=== PATIENT | female | born 1965 | race Caucasian/White ===

== ENCOUNTER → 2016-08-07 | Outpatient (CLI) | payer BC ==
[2016-07-20 08:11] VITALS: BP 146/94
[2016-08-07 12:15] LABS: BASOPHILS # (AUTO) 0.1 X10^3/uL (0.0-0.1); BASOPHILS % (AUTO) 1.2 % (0.2-1.0); BILIRUBIN,URINE NEGATIVE (NEGATIVE); BLOOD/HEMOGLOBIN,URINE NEGATIVE (NEGATIVE); EOSINOPHILS # (AUTO) 0.6 x10^3/uL (0.0-0.2); EOSINOPHILS % (AUTO) 7.7 % (0.9-2.9); GLUCOSE, URINE NEGATIVE (NEGATIVE); HEMATOCRIT 42.9 % (36.0-47.0); HEMOGLOBIN 14.6 g/dL (12.0-16.0); KETONES,URINE NEGATIVE (NEGATIVE); LEUKOCYTE ESTERASE ,URINE NEGATIVE (NEGATIVE); LYMPHOCYTES # (AUTO) 1.9 X10^3/uL (1.3-2.9); LYMPHOCYTES % (AUTO) 26.7 % (21.0-51.0); MEAN CORPUSCULAR HEMOGLOBIN 30.6 pg (27.0-34.0); MEAN CORPUSCULAR HGB CONC 33.9 g/dL (33.0-35.0); MEAN CORPUSCULAR VOLUME 90.1 fL (80.0-100.0); MEAN PLATELET VOLUME 8.5 fL (7.4-11.0); MONOCYTES # (AUTO) 0.3 x10^3/uL (0.3-0.8); MONOCYTES % (AUTO) 4.8 % (0.0-13.0); NEUTROPHILS # (AUTO) 4.3 x10^3/uL (2.2-4.8); NEUTROPHILS % (AUTO) 59.6 % (42.0-75.0); NITRITES,URINE NEGATIVE (NEGATIVE); PLATELET COUNT 291 X10^3/uL (150.0-450.0); PROTEIN,URINE NEGATIVE (NEGATIVE); RED BLOOD COUNT 4.76 X10^6/uL (3.5-5.4); RED CELL DISTRIBUTION WIDTH 14.2 % (11.6-16.5); UROBILINOGEN,URINE NORMAL (NORMAL); WHITE BLOOD COUNT 7.2 X10^3/uL (3.6-10.0)
[2016-08-07 12:26] LABS: ALANINE AMINOTRANSFERASE 26 Units/L (12-78); ALBUMIN 3.7 g/dL (3.4-5.0); ALKALINE PHOSPHATASE 145 Units/L (46-116); ASPARTATE AMINO TRANSFERASE 20 Units/L (15-37); BLOOD UREA NITROGEN 7 mg/dL (7-18); CALCIUM 9.1 mg/dL (8.5-10.1); CARBON DIOXIDE 23.2 mmol/L (21-32); CHLORIDE 108 mmol/L (98-107); GLUCOSE 85 mg/dL (65-99); SODIUM 142 mmol/L (136-145); T4 (THYROXINE) 11.4 ug/dL (4.7-13.3); TOTAL PROTEIN 7.1 g/dL (6.4-8.2); TSH (3RD GENERATION) 1.641 uIU/mL (0.358-3.74); eGFR BLACK RACES > 60 (>60); eGFR NON BLACK RACES > 60 (>60)
[2016-08-07 12:33] LABS: APPEARANCE,URINE CLEAR (CLEAR); COLOR,URINE YELLOW (YELLOW); RBC,URINE 0 /HPF (NEGATIVE)
[2016-08-07 12:34] LABS: AMORPHOUS SEDIMENT,UR 1+ /HPF (NEGATIVE); BACTERIA,URINE TRACE /HPF (NEGATIVE); SQUAMOUS EPITHELIAL CELL,UR MODERATE /HPF (NEGATIVE)
[2016-08-07 12:46] LABS: RHEUMATOID FACTOR NEGATIVE (NEGATIVE)
[2016-08-12 06:17] LABS: ANTI-NUCLEAR ANTIBODY TEST None Detected (None Detected)
[2016-08-12 06:20] LABS: COMPLEMENT TOTAL(CH50) 177 CAE Units (60-144)
[2016-08-13 07:08] LABS: T3 REVERSE 13.2 ng/dL (9.0-27.0)
== END ==
LOC: LAB 08:53
PROVIDERS: ATTEND Allergy & Immunology
DX: Z79.899 Other long term (current) drug therapy (principal)
CPT/HCPCS: 36415; 80053; 81001; 82103; 82784; 83088; 83516; 83520; 84260; 84436; 84443; 84482; 85025; 86021; 86160; 86162; 86235; 86308; 86316; 86317; 86376; 86430; 86682; 86793; 86800

== ENCOUNTER → 2016-08-09 | Outpatient (CLI) | payer BC ==
[2016-07-20 08:11] VITALS: BP 146/94
[2016-08-13 07:32] LABS: CREATININE UR MG/DAY 1239; CREATININE UR MG/DL 59
[2016-08-13 07:33] LABS: HOURS COLLECTED 24; VOLUME 2100
[2016-08-13 07:36] LABS: TOTAL URINE VOL VMA 2100
== END ==
LOC: LAB 09:28
PROVIDERS: ATTEND Allergy & Immunology
DX: L50.8 Other urticaria (principal); L29.8 Other pruritus; Z79.899 Other long term (current) drug therapy; G96.0 Cerebrospinal fluid leak
CPT/HCPCS: 81050; 83497; 83835; 84585

== ENCOUNTER 2016-08-28 00:43 | Observation (INO) | payer BC ==
[2016-08-28] MEDS ORDERED: NITROSTAT SL PRN ×2 (00:59→02:08)
[2016-08-28] MEDS ORDERED: ASPIRIN 81 MG CHEWTAB PO SCH (01:00)
--- NOTE | 2016-08-28 01:05 | DR.CP ---
HPI - Time Seen Time seen: 00:55 - PCP Primary Care Physician: Luna NOVAK - HPI Comment HPI Comment: PATIENT WOKE UP WITH SUBSTERNAL CHEST TIGHTNESS, 02/16 RADIATING TO LUE. STARTED LESS THAN ONE HOUR AGO. PATIENT DID NOT TAKE ANY MEDICATION FOR PAIN. CURRENTLY PAIN 5/10. PATIENT HAVE HISTORY OF CAD WITH PREVIOUS DC. SHE HAD NORMAL CARDIAC CATH FEBRUARY LAST YEAR. PATIENT SMOKE 1 PK/DAY, AND HAVE FAMILY HISTORY OF CAD. - Complaint Chief Complaint Doctor Comments: CHEST PAIN Chief Complaint:: WOKE UP WITH LEFT ARM HURTING AND A BURNING PAIN ALONG WITH TIGHTNESS IN CHEST. NAUSEA AND SIARRHEA - Reviewed Nurses Notes Review: Yes - Source History Provided: Patient - Mode of Arrival Mode of Arrival: Ambulatory - Timing Onset of Chief Complaint: 08/28/16 Came on: Suddenly Pain: Present Now - Duration Duration: Constant Duration: Minutes - Location Location of Chest Pain: Left, Chest Chest Pain Radiation Location: Left Arm, Left Shoulder, Left Hand - Context Onset: While Asleep Cardiac Risk Factors: Smoker, Family History, HTN PE Risk Factors: None History of: Similar pain in the past, DC Prehospital Care: None - Quality Quality: Other (TIGHTNESS) - Severity Severity: Moderate - Modifying Factors Worsens: Nothing Impoves: Nothing - Associated Signs and Symptoms Associated Signs and Symptoms: Shortness of Breath PMH - PMH Past Medical History: Yes Past Medical History: Asthma, GERD, Hypertension, [place] Past Surgical History: Yes Surgical History: Appendectomy Past Surgical History Comment: SINUS SURGERY, 3 HEART CATHS, TUBELIGATION - Family History History of Family Medical Conditions: Yes Family Medical History: Diabetes Mellitus, Cancer, [place], Heart Failure, Hypertension Family Medical History Comment: CVA, DEMENTIA - Social History Does patient currently use any type of tobacco product: Yes Have you used tobacco products in the last 12 months: Yes Type of Tobacco Use: Cigarettes How many years tobacco product used: 40 Does any household member use tobacco: Yes Alcohol Use: None Do you use any recreational Drugs:: No Lives With: Significant Other Lives Where: Home - infectious screening In the last 2 months have you had wt loss of >10#?: NO Have you had fever, night sweats or hemotysis?: No Have you traveled outside the country in the last 6 months?: No Isolation: Standard ROS - Review of Systems Constitutional: Weakness, Fatigue. negative: Chills, Fever Eyes: No Symptoms Reported. negative: Eye Pain, Discharge ENTM: No Symptoms Reported. negative: Ear Pain, Nose Discharge, Nose Congestion , Throat Pain Respiratoy: Short of Breath. negative: Productive Cough, Wheezing, Hemoptysis Cardiovascular: Chest Pain. negative: Edema, Palpitations Gastrointestinal/Abdominal: Nausea. negative: Abdominal Pain, Constipation, Vomiting Genitourinary: No Symptoms Reported. negative: Dysuria, Frequency, Hematuria Neurological: Weakness. negative: Headache, Dizziness Musculoskeletal: No Symptoms Reported Integumentary: No Symptoms Reported Hematologic/Lymphatic: Easy Bruising Endocrine: No Symptoms Reported All Other Systems: Reviewed and Negative PE - Vitals Vitals: Temperature 98.4 F Pulse Rate 79 Respiratory Rate 120 Blood Pressure 130/79 O2 Sat by Pulse Oximetry 96 - General Limitations: No Limitations General Appearance: Alert, Anxious. negative: In Distress - Head Head Exam: Normal Inspection - Eyes Eye exam: Normal Appearance, PERRL, EOMI. negative: Scleral Icterus, Conjunctival Injection, Nystagmus - ENT ENT Exam: Normal External Ear Exam - Chest Chest Inspection: Symmetric Chest Wall Rise - Respiratory Respiratory Exam: Normal Lung Sounds Bilat Respiratory Exam: Bilateral Rhonchi, Lower Rhonchi - Cardiovascular Cardiovascular Exam: Regular Rate, Normal Rhythm, Normal Heart Sounds Pulse: Normal Edema: Normal - Abdominal Exam Abdominal Exam: Normal Bowel Sounds, Soft. negative: Tenderness - Extremities Extremities Exam: Normal Inspection - Back Back Exam: Normal Inspection - Neurologic Neurological Exam: Alert, Oriented X3, CN II-XII Intact, Normal Gait, Reflexes Normal. negative: Motor Sensory Deficit - Psychiatric Psychiatric Exam: Anxious - Skin Skin Exam: Normal Color [facility] - Additional Information Additional Information Obtained From: Family - Differential Diagnosis Differential Diagnosis: Angina, Chest Wall Pain, Cholelithasis, CHF, Costochondritis, Esophageal Reflux/Spasm, Gastritis, Myocardial Infarction, Pericarditis, Pleuritis, Pancreatitis, Pneumonia, Pneumothorax, Pulmonary Embolus Course - Treatment Treatment: SEE ORDERS. - Education/Counseling Education/Counseling: Patient, Family, Education Educated On: Treatment, Diagnosis ROR - Labs Reviewed Laboratory Results Reviewed?: Yes Result Diagrams: 08/28/16 01:15 08/28/16 01:15 Laboratory: WBC 7.7 X10^3/uL (3.6-10.0) 08/28/16 01:15 RBC 4.46 X10^6/uL (3.5-5.4) 08/28/16 01:15 Hgb 13.4 g/dL (12.0-16.0) 08/28/16 01:15 Hct 39.9 % (36.0-47.0) 08/28/16 01:15 MCV 89.3 fL (80.0-100.0) 08/28/16 01:15 MCH 30.1 pg (27.0-34.0) 08/28/16 01:15 MCHC 33.7 g/dL (33.0-35.0) 08/28/16 01:15 RDW 13.7 % (11.6-16.5) 08/28/16 01:15 Plt Count 315 X10^3/uL (150.0-450.0) 08/28/16 01:15 MPV 7.3 fL (7.4-11.0) L 08/28/16 01:15 Neut % 44.3 % (42.0-75.0) 08/28/16 01:15 Lymph % 36.6 % (21.0-51.0) 08/28/16 01:15 [place] % 5.6 % (0.0-13.0) 08/28/16 01:15 Eos % 11.7 % (0.9-2.9) H 08/28/16 01:15 Baso % 1.8 % (0.2-1.0) H 08/28/16 01:15 Neut # 3.4 x10^3/uL (2.2-4.8) 08/28/16 01:15 Lymph # 2.8 X10^3/uL (1.3-2.9) 08/28/16 01:15 [place] # 0.4 x10^3/uL (0.3-0.8) 08/28/16 01:15 Eos # 0.9 x10^3/uL (0.0-0.2) H 08/28/16 01:15 Baso # 0.1 X10^3/uL (0.0-0.1) 08/28/16 01:15 Absolute Nucleated RBC 0.0 /100WBC 08/28/16 01:15 Corrected Sodium TNP 08/28/16 01:15 - XRAY XRAY Interpreted by: Radiologist XRAY Findings: REPORT DISCUSS WITH PAITIENT AND FAMILY - EKG Rhythm: NSR (EKG NOTED) - Diagnosis Discharge Problem: Chest pain - Discharge Plan Disposition: ADMITTED INPATIENT Condition: Stable - Follow ups/Referrals - Instructions
[2016-08-28] MEDS ORDERED: PEPCID 20 MG IV PREMIX* 20 MG/50 ML BAG IV ONE ×2 (01:09→01:46)
[2016-08-28 01:20] LABS: BASOPHILS # (AUTO) 0.1 X10^3/uL (0.0-0.1); BASOPHILS % (AUTO) 1.8 % (0.2-1.0); EOSINOPHILS # (AUTO) 0.9 x10^3/uL (0.0-0.2); EOSINOPHILS % (AUTO) 11.7 % (0.9-2.9); HEMATOCRIT 39.9 % (36.0-47.0); HEMOGLOBIN 13.4 g/dL (12.0-16.0); LYMPHOCYTES # (AUTO) 2.8 X10^3/uL (1.3-2.9); LYMPHOCYTES % (AUTO) 36.6 % (21.0-51.0); MEAN CORPUSCULAR HEMOGLOBIN 30.1 pg (27.0-34.0); MEAN CORPUSCULAR HGB CONC 33.7 g/dL (33.0-35.0); MEAN CORPUSCULAR VOLUME 89.3 fL (80.0-100.0); MEAN PLATELET VOLUME 7.3 fL (7.4-11.0); MONOCYTES # (AUTO) 0.4 x10^3/uL (0.3-0.8); MONOCYTES % (AUTO) 5.6 % (0.0-13.0); NEUTROPHILS # (AUTO) 3.4 x10^3/uL (2.2-4.8); NEUTROPHILS % (AUTO) 44.3 % (42.0-75.0); PLATELET COUNT 315 X10^3/uL (150.0-450.0); RED BLOOD COUNT 4.46 X10^6/uL (3.5-5.4); RED CELL DISTRIBUTION WIDTH 13.7 % (11.6-16.5); WHITE BLOOD COUNT 7.7 X10^3/uL (3.6-10.0)
[2016-08-28 01:38] LABS: BLOOD UREA NITROGEN 8 mg/dL (7-18); CALCIUM 8.9 mg/dL (8.5-10.1); CARBON DIOXIDE 24.2 mmol/L (21-32); CHLORIDE 104 mmol/L (98-107); CREATININE 0.84 mg/dL (0.55-1.02); GLUCOSE 107 mg/dL (65-99); SODIUM 140 mmol/L (136-145); TROPONIN I < 0.02 ng/mL (0-1.5); eGFR BLACK RACES > 60 (>60); eGFR NON BLACK RACES > 60 (>60)
[2016-08-28 01:53] LABS: ALANINE AMINOTRANSFERASE 16 Units/L (12-78); ALBUMIN 3.2 g/dL (3.4-5.0); ALKALINE PHOSPHATASE 141 Units/L (46-116); ASPARTATE AMINO TRANSFERASE 12 Units/L (15-37); CKMB % 2.6 % (<4); COR CA(FOR HYPOALB) 9.5 mg/dL (8.5-10.1); CREATINE KINASE 39 Units/L (26-192); CREATINE KINASE MB < 1.0 ng/mL (0-4.0); TOTAL PROTEIN 7.1 g/dL (6.4-8.2)
[2016-08-28 03:21] VITALS: BMI 28.2
[2016-08-28] MEDS ORDERED: ASPIRIN 81 MG CHEWTAB ONE (03:34)
--- NOTE | 2016-08-28 04:00 | RAD ---
AP Chest Indication: Chest pain Comparison: 07/20/2016 Findings: The trachea is midline. The cardiac silhouette is unremarkable. Subsegmental atelectasis noted wit hin the lung bases, unchanged. No new airspace opacity, pleural effusion or pneumothorax.. The bony thorax is unremarkable. IMPRESSION: 1. No acute cardiopulmonary abnormality or change from prior examination.. Reported By:
[2016-08-28] MEDS ORDERED: ZOFRAN INJ 4 MG VIAL IVP PRN (04:36)
[2016-08-28] MEDS ORDERED: PHENERGAN INJ 25 MG IV PRN (05:40)
[2016-08-28 07:40] LABS: CKMB % 1.8 % (<4); CREATINE KINASE 57 Units/L (26-192); CREATINE KINASE MB < 1.0 ng/mL (0-4.0); TROPONIN I < 0.02 ng/mL (0-1.5)
[2016-08-28 07:42] LABS: CHOL/HDL RATIO 4.1 (0.0-5.0)
[2016-08-28] MEDS ORDERED: MORPHINE SULFATE INJ 2 MG IVP PRN ×2 (08:28→18:03)
[2016-08-28] MEDS: PEPCID 20 MG IV PREMIX* 20 MG/50 ML BAG IV SCH ×2 (08:58→20:31)
[2016-08-28] MEDS: NS 500 ML IV 500 ML IV PRN (08:59)
[2016-08-28] MEDS ORDERED: CHLORASEPTIC SPRAY MT PRN (10:55)
[2016-08-28] MEDS: ASPIRIN 81 MG CHEWTAB PO SCH (10:57)
[2016-08-28] MEDS: PLAVIX PO SCH (10:57)
[2016-08-28 14:31] LABS: CKMB % 1.6 % (<4); CREATINE KINASE 62 Units/L (26-192); CREATINE KINASE MB < 1.0 ng/mL (0-4.0)
[2016-08-28 14:57] LABS: TROPONIN I < 0.02 ng/mL (0-1.5)
--- NOTE | 2016-08-28 15:46 | US ---
HISTORY: Abdominal pain, nausea, vomiting Study: Right upper quadrant abdominal ultrasound Comparison: None Technique: Multiple kern scale and color flow Doppler images of the right upper quadrant were obtain ed. Findings: The liver is normal in echotexture and size. No focal intraparenchymal mass or intrahepatic biliary ductal dilatation is observed. No evidence of gallstones. The common bile duct measures size. Th ere is borderline gallbladder wall thickening up to 4 mm that may be in part be due to underdistenti on. No pericholecystic fluid identified. No sonographic Basurto's sign reported. The right kidney appears normal in size without focal parenchymal mass or nephrolithiasis. The righ t kidney measurers 10 x 6.6 x 4.8 cm. No evidence of hydronephrosis. The visualized portions of th e pancreas are unremarkable. IMPRESSION: 1. Borderline gallbladder wall thickening up to 4 mm that may in part be due to underdistention. No evidence of gallstones or other sonographic evidence of cholecystitis. 2. Normal appearance of the liver, right kidney and pancreas. Reported By:
[2016-08-28] MEDS ORDERED: NORCO 7.5/325 MG TAB PO PRN (18:02)
[2016-08-28] MEDS ORDERED: COMBIVENT RESPIMAT IN PRN ×2 (18:02→18:10)
[2016-08-28] MEDS ORDERED: DEMEROL INJ IVP PRN (18:04)
--- NOTE | 2016-08-28 18:11 | DR.H&P ---
H&P - History & Physical for Day of: H&P Date: 08/28/16 - Chief Complaint Chief Complaint: cp - Allergies Allergies/Adverse Reactions: Allergies Allergy/AdvReac Type Severity Reaction Status Date / Time Hydromorphone [From Dilaudid] Allergy Verified 08/06/15 18:50 Ketorolac Tromethamine Allergy Verified 08/06/15 18:50 [From Toradol] Aspirin AdvReac STOMACH Verified 08/28/16 02:47 HURTS - History of Present Illness History of Present Illness: patient is a 50-year-old white female who was admitted from the emergency room after presenting with complaints of chest pain. Patient states chest pain woke her up around midnight accompanied by nausea and shortness of breath. Patient states she's had multiple heart catheters in the past per Dr. Benz in [place]. Patient also has a history of reflux disease with last EGD be in greater than a year ago. Patient admitted for serial cardiac enzymes and EKG to rule out NE. - Past Medical History Past Medical History: Asthma, GERD, Hypertension, [place] - Past Surgical History Surgical History: Appendectomy - Family History Family Medical History: Diabetes Mellitus, Cancer, [place], Heart Failure, Hypertension - Social History Does patient currently use any type of tobacco product: Yes Have you used tobacco products in the last 12 months: Yes Type of Tobacco Use: Cigarettes How many years tobacco product used: 40 Does any household member use tobacco: Yes Alcohol Use: None Drug Use: None - Medications Home Medications: Fluticasone Nasal [place] [FLONASE NASAL SPRAY *] 1 spray ENOSTRIL DAILY 08/28/16 [History Confirmed 08/28/16] Hydroxyzine HCl [Hydroxyzine HCl] 1 tab PO DAILY 08/28/16 [History Confirmed 05/04] Levocetirizine Dihydrochloride [Levocetirizine Dihydrochl] 1 tab PO DAILY [History Confirmed 08/28/16] Omeprazole [Omeprazole] 1 cap PO DAILY 08/28/16 [History Confirmed 08/28/16] - Review of Systems Constitutional: denies: Fever, Chills Eyes: No Symptoms Reported ENT: No Symptoms Reported Respiratory: Shortness of Breath Cardiovascular: Chest Pain Gastrointestinal: Nausea Genitourinary: No Symptoms Reported Musculoskeletal: Back Pain Skin: No Symptoms Reported Neurological: No Symptoms Reported - Physical Exam Vital Signs: Temperature 98.7 F Pulse Rate [Left Brachial] 90 Pulse Rate [Right Brachial] 72 Respiratory Rate 20 Blood Pressure [Left Arm] 119/75 Blood Pressure [Right Arm] 132/90 O2 Sat by Pulse Oximetry 93 Oriented: Normal Eyes: Normal Ear: Normal Nose: Normal Throat: Normal Respiratory: RLL Exp. Wheeze, LLL Exp. Wheeze Cardiovascular: Normal : Normal Auscultation: Bowel Sounds: Normal Palpation: Normal Tenderness: RUQ, Epigastric Skin: Normal Musculoskeletal: Back:Lumbar Psychiatric: Anxiety Speech Pattern: Clear, Appropriate - Assessment/Plan (1) Chest pain Qualifiers: Chest pain type: C Ischemic chest pain type: I Status: Acute Plan: admit for serial CE's, EKG ro acute NE. plan to repeat am labs. continue bp and lipid control. pain and nausea control (2) RUQ pain Status: Acute Plan: gb us, bland diet (3) GERD (gastroesophageal reflux disease) Qualifiers: Esophagitis presence: E Status: Acute
[2016-08-28] MEDS ORDERED: SYMBICORT INH 160/4.5 mcg IN SCH (18:15)
[2016-08-28] MEDS ORDERED: PATIENT'S HOME MEDICATION RESPIRATORY (Levocetirizine Dihydrochloride [Levocetirizine Dihy PO SCH (20:00)
[2016-08-28] MEDS ORDERED: BENADRYL CAP 50 MG PO SCH (20:00)
[2016-08-28] MEDS ORDERED: [UNRECOGNIZED DRUG - OTHER] PO SCH (20:00)
[2016-08-28] MEDS: FLONASE NASAL SPRAY ENOSTRIL SCH (20:30)
[2016-08-28] MEDS ORDERED: SINGULAIR TAB 10 MG PO SCH (21:00)
[2016-08-28] MEDS: SYMBICORT INH 160/4.5 mcg IN SCH (21:29)
[2016-08-28] MEDS ORDERED: BENADRYL CAP 50 MG PO PRN (23:54)
[2016-08-29 05:21] LABS: BASOPHILS % (AUTO) 0.7 % (0.2-1.0); EOSINOPHILS # (AUTO) 0.5 x10^3/uL (0.0-0.2); EOSINOPHILS % (AUTO) 11.3 % (0.9-2.9); HEMATOCRIT 39.6 % (36.0-47.0); HEMOGLOBIN 13.4 g/dL (12.0-16.0); LYMPHOCYTES # (AUTO) 2.1 X10^3/uL (1.3-2.9); LYMPHOCYTES % (AUTO) 42.9 % (21.0-51.0); MEAN CORPUSCULAR HEMOGLOBIN 30.1 pg (27.0-34.0); MEAN CORPUSCULAR HGB CONC 33.7 g/dL (33.0-35.0); MEAN CORPUSCULAR VOLUME 89.4 fL (80.0-100.0); MEAN PLATELET VOLUME 7.6 fL (7.4-11.0); MONOCYTES # (AUTO) 0.2 x10^3/uL (0.3-0.8); MONOCYTES % (AUTO) 4.1 % (0.0-13.0); PLATELET COUNT 303 X10^3/uL (150.0-450.0); RED BLOOD COUNT 4.43 X10^6/uL (3.5-5.4); RED CELL DISTRIBUTION WIDTH 13.3 % (11.6-16.5); WHITE BLOOD COUNT 4.8 X10^3/uL (3.6-10.0)
[2016-08-29 05:54] LABS: ALANINE AMINOTRANSFERASE 13 Units/L (12-78); ALBUMIN 2.9 g/dL (3.4-5.0); ALKALINE PHOSPHATASE 132 Units/L (46-116); AMYLASE 41 Units/L (25-115); ASPARTATE AMINO TRANSFERASE 14 Units/L (15-37); BLOOD UREA NITROGEN 11 mg/dL (7-18); CALCIUM 8.5 mg/dL (8.5-10.1); CARBON DIOXIDE 22.9 mmol/L (21-32); CHLORIDE 107 mmol/L (98-107); COR CA(FOR HYPOALB) 9.4 mg/dL (8.5-10.1); GLUCOSE 99 mg/dL (65-99); LIPASE 78 Units/L (73-393); SODIUM 140 mmol/L (136-145); TOTAL PROTEIN 6.7 g/dL (6.4-8.2); eGFR BLACK RACES > 60 (>60); eGFR NON BLACK RACES > 60 (>60)
[2016-08-29] MEDS: SYMBICORT INH 160/4.5 mcg IN SCH (08:37)
[2016-08-29] MEDS ORDERED: ATARAX TAB 25 MG PO SCH (09:00)
[2016-08-29] MEDS ORDERED: PriLOSEC PO SCH (09:00)
[2016-08-29] MEDS ORDERED: ZyrTEC TAB 10 MG PO SCH (09:00)
[2016-08-29] MEDS: PEPCID 20 MG IV PREMIX* 20 MG/50 ML BAG IV SCH (09:28)
[2016-08-29] MEDS: NS 500 ML IV 500 ML IV PRN (09:28)
[2016-08-29] MEDS ORDERED: NS 1000 ML 1,000 ML ONE (14:27)
[2016-08-29] MEDS ORDERED: DIPRIVAN VIAL 20 ML ONE (15:29)
[2016-08-29] MEDS ORDERED: XYLOCAINE 2 % (PLAIN) ONE (15:30)
[2016-08-29] MEDS: ASPIRIN 81 MG CHEWTAB PO SCH (16:32)
[2016-08-29] MEDS: FLONASE NASAL SPRAY ENOSTRIL SCH (16:32)
[2016-08-29] MEDS: PLAVIX PO SCH (16:33)
[2016-08-29 17:37] VITALS: BP 128/78
== END 2016-08-29 17:35 | disposition home or self-care (01) | DRG 313 ==
LOC: ER 00:43 → OBS 02:06
PROVIDERS: ADMIT Internal Medicine; ATTEND Internal Medicine
PROC: 0DB68ZX Excision of Stomach, Via Natural or Artificial Opening Endoscopic, Diagnostic (ICD-10-PCS; principal; 2016-08-28)
PROC: 0DB98ZX Excision of Duodenum, Via Natural or Artificial Opening Endoscopic, Diagnostic (ICD-10-PCS; 2016-08-28)
DX: R07.89 Other chest pain (principal); R11.2 Nausea with vomiting, unspecified; R19.7 Diarrhea, unspecified; K21.9 Gastro-esophageal reflux disease without esophagitis; I10 Essential (primary) hypertension; R10.11 Right upper quadrant pain
CPT/HCPCS: 36415; 71010; 76705; 80053; 80061; 82150; 82550; 82553; 83690; 84484; 85025; 93005; 93010; 94640; 94760; 96365; 96374; 99284; A4216; A4222; S0028; A4217; G0378; J2001; J2270; J2405; J2550; J3490

== ENCOUNTER → 2016-09-23 | Outpatient (CLI) | payer BC ==
[2016-08-29 17:37] VITALS: BP 128/78
[~2016-09-23] MED LIST: NS 100 ML IV 0 ML IV ONE
--- NOTE | 2016-09-23 10:57 | CT ---
HISTORY: Right lower quadrant pain Study: Abdominal and pelvic CT without contrast Comparison: None Technique: Axial non contrast images with coronal and sagittal reformats. IV contrast could not be a dministered due to the inability to obtain venous access. Dose reduction procedures were used with M A/kv adjusted for body size. Findings: There is partially visualized atelectatic change in the right middle lobe of uncertain etiology. The left lung base is clear. The liver, spleen, adrenal glands, and pancreas are within normal limits t o the limitations of an unenhanced examination. No opaque stones are visible within the gallbladder. The kidneys are unobstructed and without stones. No ureteral calculi are identified. The patient is status post appendectomy by history. No enlarged intraperitoneal or retroperitoneal lymphadenopathy is identified. There are no findings suggestive of diverticulitis or colitis. No definite small bow el abnormality is identified. Examination of the pelvis demonstrated no evidence for pelvic masses, pelvic fluid, or pelvic lymphadenopathy. No bladder abnormality is identified. No significant skelet al abnormality is identified. IMPRESSION: No evidence for obstructing renal or ureteral calculi. No significant abnormality in the abdomen or on unenhanced examination Partially visualize atelectatic change in the right middle lobe. Chest CT may be of further diagnost ic value. Reported By:
== END | disposition home or self-care (01) ==
LOC: RAD 09:14
PROVIDERS: ATTEND Internal Medicine
DX: K58.0 Irritable bowel syndrome with diarrhea (principal); R10.32 Left lower quadrant pain; R11.2 Nausea with vomiting, unspecified; R10.31 Right lower quadrant pain
CPT/HCPCS: 74176; A4222

== ENCOUNTER 2016-10-15 10:55 | Emergency (ER) | payer BC ==
[2016-10-15 11:00] VITALS: BP 155/90; BMI 29.9
[2016-10-15] MEDS ORDERED: XYLOCAINE 1 % (PLAIN) ONE (11:42)
--- NOTE | 2016-10-15 11:51 | DR.GENAD ---
HPI - PCP Primary Care Physician: josé - HPI Comment HPI Comment: NO FEVER. SIZE OF SWELLING HAVE INCREASE AND IS PAINFUL AND RED. NO DRAINAGE. SMALL SWELLING NOTED BEHIND RT EAR FOR ONE YEAR. - Complaint/Symptoms Chief Complaint Doctors Comments: SWELLING AND PAIN BEHIND RIGHT EAR THAT GOT WORSE FEW DAYS AGO. Chief Complaint:: patient has a abcess behind her right ear that has been there for about a year but it has gotton gigger and more painfull. - Nurses notes reviewed Nurses Notes Review: Yes - Source History Provided: Patient - Mode of Arrival Mode of Arrival: Ambulatory - Timing Onset of Chief Complaint: 10/03/15 Came on: Gradually - Duration Duration: Constant Duration: Days - Severity Severity: Moderate PMH - PMH Past Medical History: Yes Past Medical History: Asthma, GERD, Hypertension, [place] Past Surgical History: Yes Surgical History: Appendectomy - Family History History of Family Medical Conditions: Yes Family Medical History: Diabetes Mellitus, Cancer, [place], Heart Failure, Hypertension - Social History Does patient currently use any type of tobacco product: Yes Have you used tobacco products in the last 12 months: Yes Type of Tobacco Use: Cigarettes Does any household member use tobacco: Yes Alcohol Use: None Do you use any recreational Drugs:: No Lives With: Family Lives Where: Home - infectious screening In the last 2 months have you had wt loss of >10#?: NO Have you had fever, night sweats or hemotysis?: No Have you traveled outside the country in the last 6 months?: No Isolation: Standard ROS - Review of Systems Constitutional: No Symptoms Reported Eyes: No Symptoms Reported ENTM: No Symptoms Reported (PAIN AND SWELLING BEHIND RT EAR WITH REDNESS.), Ear Pain. negative: Ear Discharge Respiratoy: No Symptoms Reported Cardiovascular: No Symptoms Reported Gastrointestinal/Abdominal: No Symptoms Reported Genitourinary: No Symptoms Reported Neurological: No Symptoms Reported Musculoskeletal: Muscle Pain Integumentary: Other (ABSCESS BEHIND RT EAR.) Hematologic/Lymphatic: No Symptoms Reported Endocrine: No Symptoms Reported All Other Systems: Reviewed and Negative PE - Vital Signs Vitals: Temperature 98.7 F Pulse Rate 96 Respiratory Rate 18 Blood Pressure [Left Arm] 112/76 Blood Pressure [Right Arm] 128/78 Blood Pressure 155/90 O2 Sat by Pulse Oximetry 100 - General Limitations: No Limitations General Appearance: Alert - Head Head Exam: Normal Inspection - Eyes Eye exam: Normal Appearance - ENT ENT Exam: Other (ABSCESS OR CYST SIZE PRECIADO EGG WHICH IS SLIGHTLY RED AND TENDER.) TM/Canal Exam: Bilateral Normal Nose Exam: Normal Nose Exam Mouth Exam: Normal Inspection Throat Exam: Normal Inspection - Neck Neck Exam: Trachea Midline - Respiratory Respiratory Exam: Normal Lung Sounds Bilat Respiratory Exam: Bilateral Clear to Auscultation - Cardiovascular Cardiovascular Exam: Regular Rate, Normal Rhythm, Normal Heart Sounds - Abdominal Exam Abdominal Exam: Normal Inspection - Extremities Extremities Exam: Normal Inspection - Back Back Exam: Normal Inspection - Neurologic Neurological Exam: Alert, Oriented X3 - Psychiatric Psychiatric Exam: Normal Affect, Normal Mood - Skin Skin Exam: Erythema MDM - Differential Diagnosis Differential Diagnosis: ABSCESS BEHIND RIGHT EAR, CELLULITIS Course - Treatment Treatment: SEE ORDERS. - Education/Counseling Education/Counseling: Patient, Education Educated On: Diagnosis, Needs for Follow Up ROR - Labs Reviewed Laboratory: 10/15/16 12:09 Ear - Right Gram Stain - Final Procedures - Incision and Drainage Blade Size: 11 I & D Procedure: betadine prep, sterile drapes applied Progress: I&D DONE UNDER STERILE CONDITION AFTER NUMBING WITH LIDOCAINE 1%. - Diagnosis Discharge Problem: Abscess - Discharge Plan Disposition: 01 HOME, SELF-CARE Condition: Stable - Follow ups/Referrals Follow ups/Referrals: Enio Shipley [Primary Care Provider] - 3 days - Instructions Instructions: Abscess, [id number] Additional Instructions: RETURN TO ED IF WORSE.
== END 2016-10-15 12:04 | disposition home or self-care (01) ==
LOC: ER 10:55
PROC: 099 Ear, Nose, Sinus, Drainage (ICD-10-PCS; principal; 2016-10-15)
DX: H60.01 Abscess of right external ear (principal)
CPT/HCPCS: 10060; 87070; 87075; 87205; 99282; J2001

== ENCOUNTER 2016-12-15 12:16 | Emergency (ER) | payer BC ==
[2016-12-15 12:34] VITALS: BMI 25.2
--- NOTE | 2016-12-15 12:41 | ED.ABDFE ---
HPI - Time seen Time seen: 12:36 - PCP Primary Care Physician: CHANO HERNANDEZ - Complaint Chief Complaint Doctors Comments: Patient denies fever Chief Complaint:: .NAUSEA AND VOMITTING FOR A WEEK - Source History Provided: Patient - Mode of arrival Mode of Arrival: Ambulatory - Timing Onset of Chief Complaint: 12/06/16 PMH - PMH Past Medical History: Yes Past Medical History: Asthma, GERD, Hypertension, [place] Past Surgical History: Yes Surgical History: Appendectomy Past Surgical History Comment: TUBAL , SINUSES - Family History History of Family Medical Conditions: Yes Family Medical History: Diabetes Mellitus, Cancer, [place], Heart Failure, Hypertension - Social History Does patient currently use any type of tobacco product: Yes Have you used tobacco products in the last 12 months: Yes Type of Tobacco Use: Cigarettes How many years tobacco product used: 20 Does any household member use tobacco: No Alcohol Use: None Do you use any recreational Drugs:: No Lives With: Family Lives Where: Home - infectious screening In the last 2 months have you had wt loss of >10#?: NO Have you had fever, night sweats or hemotysis?: No Have you traveled outside the country in the last 6 months?: No Isolation: Standard ROS - Review of Systems Eyes: No Symptoms Reported ENTM: No Symptoms Reported Respiratoy: No Symptoms Reported Cardiovascular: No Symptoms Reported Gastrointestinal/Abdominal: Diarrhea, Nausea, Vomiting Genitourinary: No Symptoms Reported Neurological: No Symptoms Reported Musculoskeletal: No Symptoms Reported Integumentary: No Symptoms Reported Hematologic/Lymphatic: No Symptoms Reported Endocrine: No Symptoms Reported Psychiatric: No Symptoms Reported All Other Systems: Reviewed and Negative PE - Vital Signs Vitals: Temperature 98.3 F Pulse Rate [Brachial] 91 Pulse Rate 84 Respiratory Rate 22 Blood Pressure [Left Arm] 185/87 Blood Pressure [Right Arm] 128/78 Blood Pressure 171/104 O2 Sat by Pulse Oximetry 95 - General Limitations: No Limitations General Appearance: Alert, In No Apparent Distress - Head Head Exam: Normal Inspection, Atraumatic - Eyes Eye exam: Normal Appearance, PERRL, EOMI - ENT ENT Exam: Normal Exam - Neck Neck Exam: Normal Inspection, Full ROM - Chest Chest Inspection: Normal Inspection - Respiratory Respiratory Exam: Normal Lung Sounds Bilat Respiratory Exam: Bilateral Clear to Auscultation - Cardiovascular Cardiovascular Exam: Regular Rate, Normal Rhythm - Abdominal Exam Abdominal Exam: Hyperactive Bowel Sounds Abdominal Tenderness: Suprapubic - Rectal Rectal Exam: Deferred - Back Back Exam: Normal Inspection - Extremeties Extremities Exam: Normal Inspection - External Exam: Female: Deferred : Speculum Exam (Female): Deferred : Bimanual Exam (female): Deferred - Neurologic Neurological Exam: Alert, Oriented X3, CN II-XII Intact - Psychiatric Psychiatric Exam: Normal Affect, Normal Mood - Skin Skin Exam: Warm, Dry Course - Treatment Treatment: Antiemetic, NS - Reevaluation 1st: Improved ROR - Labs Reviewed Laboratory Results Reviewed?: Yes (UA: 2+leuko;wbc4-8, Stool:neg wbc, 3+ketones) Result Diagrams: 12/15/16 13:16 12/15/16 13:16 Laboratory: WBC 7.7 X10^3/uL (3.6-10.0) 12/15/16 13:16 RBC 4.96 X10^6/uL (3.5-5.4) 12/15/16 13:16 Hgb 15.0 g/dL (12.0-16.0) 12/15/16 13:16 Hct 44.2 % (36.0-47.0) 12/15/16 13:16 MCV 89.2 fL (80.0-100.0) 12/15/16 13:16 MCH 30.3 pg (27.0-34.0) 12/15/16 13:16 MCHC 33.9 g/dL (33.0-35.0) 12/15/16 13:16 RDW 13.7 % (11.6-16.5) 12/15/16 13:16 Plt Count 353 X10^3/uL (150.0-450.0) 12/15/16 13:16 MPV 7.3 fL (7.4-11.0) L 12/15/16 13:16 Neut % 49.3 % (42.0-75.0) 12/15/16 13:16 Lymph % 33.0 % (21.0-51.0) 12/15/16 13:16 [place] % 4.2 % (0.0-13.0) 12/15/16 13:16 Eos % 12.1 % (0.9-2.9) H 12/15/16 13:16 Baso % 1.4 % (0.2-1.0) H 12/15/16 13:16 Neut # 3.8 x10^3/uL (2.2-4.8) 12/15/16 13:16 Lymph # 2.5 X10^3/uL (1.3-2.9) 12/15/16 13:16 [place] # 0.3 x10^3/uL (0.3-0.8) 12/15/16 13:16 Eos # 0.9 x10^3/uL (0.0-0.2) H 12/15/16 13:16 Baso # 0.1 X10^3/uL (0.0-0.1) 12/15/16 13:16 Absolute Nucleated RBC 0.0 /100WBC 12/15/16 13:16 Sodium 139 mmol/L (136-145) 12/15/16 13:16 Corrected Sodium TNP 12/15/16 13:16 Potassium 3.7 mmol/L (3.5-5.1) 12/15/16 13:16 Chloride 105 mmol/L (98-107) 12/15/16 13:16 Carbon Dioxide 25.8 mmol/L (21-32) 12/15/16 13:16 BUN 8 mg/dL (7-18) 12/15/16 13:16 Creatinine 0.87 mg/dL (0.55-1.02) 12/15/16 13:16 Est GFR (MDRD) Af Amer > 60 (>60) 12/15/16 13:16 Est GFR (MDRD) Non-Af > 60 (>60) 12/15/16 13:16 Glucose 91 mg/dL (65-99) 12/15/16 13:16 Calcium 9.2 mg/dL (8.5-10.1) 12/15/16 13:16 Corrected Calcium TNP 12/15/16 13:16 Total Bilirubin 0.30 mg/dL (0.2-1.0) 12/15/16 13:16 AST 21 Units/L (15-37) 12/15/16 13:16 ALT 26 Units/L (12-78) 12/15/16 13:16 Alkaline Phosphatase 180 Units/L (46-116) H 12/15/16 13:16 C-Reactive Protein 2.40 mg/L (0-3.0) 12/15/16 13:16 Total Protein 8.0 g/dL (6.4-8.2) 12/15/16 13:16 Albumin 3.7 g/dL (3.4-5.0) 12/15/16 13:16 Globulin 4.3 g/dL (2.5-4.5) 12/15/16 13:16 Albumin/Globulin Ratio 0.9 Ratio (1.1-2.1) L 12/15/16 13:16 Specimen Type Clean catch urine 12/15/16 13:19 Urine Color Yellow (YELLOW) 12/15/16 13:19 Urine Appearance Cloudy (CLEAR) 12/15/16 13:19 Urine pH 5.0 (5.0 - 8.0) 12/15/16 13:19 Ur Specific [place] 1.030 (1.000-1.030) 12/15/16 13:19 Urine Protein 2+ (NEGATIVE) 12/15/16 13:19 Urine Glucose (UA) Negative (NEGATIVE) 12/15/16 13:19 Urine Ketones 3+ (NEGATIVE) 12/15/16 13:19 Urine Occult Blood 1+ (NEGATIVE) 12/15/16 13:19 Urine Nitrite Negative (NEGATIVE) 12/15/16 13:19 Urine Bilirubin 1+ (NEGATIVE) 12/15/16 13:19 Urine Urobilinogen 1+ (NORMAL) 12/15/16 13:19 Ur Leukocyte Esterase 2+ (NEGATIVE) 12/15/16 13:19 Urine RBC 02 - 05 /HPF (NEGATIVE) 12/15/16 13:19 Urine WBC 04 - 08 /HPF (NEGATIVE) 12/15/16 13:19 Ur Squamous Epith Cells Many /HPF (NEGATIVE) 12/15/16 13:19 Amorphous Sediment 2+ /HPF (NEGATIVE) 12/15/16 13:19 Urine Bacteria Trace /HPF (NEGATIVE) 12/15/16 13:19 Urine Mucus Moderate /HPF (NEGATIVE) 12/15/16 13:19 Ur Culture Indicated? No/not indicated 12/15/16 13:19 Stool for White Cells No wbc's seen (None) 12/15/16 14:51 - XRAY XRAY Interpreted by: Radiologist (There is scarring within the moddle lobe and lingula, but the previously demonstrated middle lobe consolidation has essentially resolved. There is trace aortoiliac atherosclerosis, without noncontrast evidence of acute vascular abnormality. The solid abdominal visera are unremarkable given nonconstras technique. No abnormality of the imagae gastrointestinal trace is identified. The pelvic organs are within normal limits. There is no free fluid or free air. There is no acute skeletal abnormality or worrisome skeletal lesions.) - Diagnosis Discharge Problem: Dehydration UTI (urinary tract infection) Qualifiers: Urinary tract infection type: acute cystitis Hematuria presence: with hematuria Qualified Code(s): N30.01 - Acute cystitis with hematuria - Discharge Plan Condition: Stable - Follow ups/Referrals Follow ups/Referrals: Enio Shipley [Primary Care Provider] - 3 days - Instructions
[2016-12-15] MEDS ORDERED: NS 1000 ML 1,000 ML IV ONE ×2 (12:44→16:35)
[2016-12-15] MEDS ORDERED: NS 1000 ML 1,000 ML ONE ×2 (13:03→16:35)
[2016-12-15 13:21] LABS: BASOPHILS # (AUTO) 0.1 X10^3/uL (0.0-0.1); BASOPHILS % (AUTO) 1.4 % (0.2-1.0); EOSINOPHILS # (AUTO) 0.9 x10^3/uL (0.0-0.2); EOSINOPHILS % (AUTO) 12.1 % (0.9-2.9); HEMATOCRIT 44.2 % (36.0-47.0); LYMPHOCYTES # (AUTO) 2.5 X10^3/uL (1.3-2.9); MEAN CORPUSCULAR HEMOGLOBIN 30.3 pg (27.0-34.0); MEAN CORPUSCULAR HGB CONC 33.9 g/dL (33.0-35.0); MEAN CORPUSCULAR VOLUME 89.2 fL (80.0-100.0); MEAN PLATELET VOLUME 7.3 fL (7.4-11.0); MONOCYTES # (AUTO) 0.3 x10^3/uL (0.3-0.8); MONOCYTES % (AUTO) 4.2 % (0.0-13.0); NEUTROPHILS # (AUTO) 3.8 x10^3/uL (2.2-4.8); NEUTROPHILS % (AUTO) 49.3 % (42.0-75.0); PLATELET COUNT 353 X10^3/uL (150.0-450.0); RED BLOOD COUNT 4.96 X10^6/uL (3.5-5.4); RED CELL DISTRIBUTION WIDTH 13.7 % (11.6-16.5); WHITE BLOOD COUNT 7.7 X10^3/uL (3.6-10.0)
[2016-12-15 13:30] LABS: BILIRUBIN,URINE 1+ (NEGATIVE); BLOOD/HEMOGLOBIN,URINE 1+ (NEGATIVE); GLUCOSE, URINE NEGATIVE (NEGATIVE); KETONES,URINE 3+ (NEGATIVE); LEUKOCYTE ESTERASE ,URINE 2+ (NEGATIVE); NITRITES,URINE NEGATIVE (NEGATIVE); PROTEIN,URINE 2+ (NEGATIVE); UROBILINOGEN,URINE 1+ (NORMAL)
[2016-12-15 13:39] LABS: AMORPHOUS SEDIMENT,UR 2+ /HPF (NEGATIVE); APPEARANCE,URINE CLOUDY (CLEAR); BACTERIA,URINE TRACE /HPF (NEGATIVE); COLOR,URINE YELLOW (YELLOW); MUCUS,URINE MODERATE /HPF (NEGATIVE); SQUAMOUS EPITHELIAL CELL,UR MANY /HPF (NEGATIVE)
[2016-12-15 13:40] LABS: ALANINE AMINOTRANSFERASE 26 Units/L (12-78); ALBUMIN 3.7 g/dL (3.4-5.0); ALKALINE PHOSPHATASE 180 Units/L (46-116); ASPARTATE AMINO TRANSFERASE 21 Units/L (15-37); BLOOD UREA NITROGEN 8 mg/dL (7-18); CALCIUM 9.2 mg/dL (8.5-10.1); CARBON DIOXIDE 25.8 mmol/L (21-32); CHLORIDE 105 mmol/L (98-107); CREATININE 0.87 mg/dL (0.55-1.02); GLUCOSE 91 mg/dL (65-99); SODIUM 139 mmol/L (136-145); eGFR BLACK RACES > 60 (>60); eGFR NON BLACK RACES > 60 (>60)
[2016-12-15] MEDS ORDERED: PHENERGAN INJ 25 MG IV ONE (13:40)
[2016-12-15] MEDS ORDERED: PHENERGAN INJ 25 MG ONE (13:41)
[2016-12-15 15:00] VITALS: BP 185/87
[2016-12-15] MEDS ORDERED: REGLAN INJ 10 MG VIAL IVP ONE (15:39)
[2016-12-15] MEDS ORDERED: REGLAN INJ 10 MG VIAL ONE (15:47)
--- NOTE | 2016-12-15 16:15 | CT ---
Abdomen and pelvis CT without contrast: Indication: Vomiting, nausea. Comparison: Abdomen and pelvis CT dated September 23, 2016. Technique: Noncontrast helical CT imaging of the abdomen and pelvis was performed with multiplanar r eformations. Findings: There is scarring within the middle lobe and lingula, but the previously demonstrated midd le lobe consolidation has essentially resolved. There is trace aortoiliac atherosclerosis, without n oncontrast evidence of acute vascular abnormality. The solid abdominal viscera are unremarkable given noncontrast technique. No abnormality of the imag ed gastrointestinal tract is identified. The pelvic organs are within normal limits. There is no free fluid or free air. There is no acute skeletal abnormality or worrisome skeletal lesion. Impression: 1. No acute abnormality of the abdomen or pelvis. 2. Substantial improvement in middle lobe consolidation, with residual middle lobe and lingular scar ring. Reported By:
== END 2016-12-15 18:14 | disposition home or self-care (01) ==
LOC: ER 12:27
DX: N30.01 Acute cystitis with hematuria (principal); E86.0 Dehydration
CPT/HCPCS: 36415; 74176; 80053; 81001; 85025; 86140; 87205; 96365; 96367; 96374; 96375; 99283; A4222; J2550; J2765

== ENCOUNTER → 2017-04-08 | Outpatient (CLI) | payer BC ==
[2017-04-08 14:10] LABS: STOOL FOR WBC POSITIVE (NEGATIVE)
[2017-04-08 15:11] LABS: CRYPTOSPORIDIUM PARVUM ANTIGEN NEGATIVE (NEGATIVE); GIARDIA LAMBLIA ANTIGEN NEGATIVE (NEGATIVE)
== END ==
LOC: LAB 11:00
PROVIDERS: ATTEND Nurse Practitioner
DX: R11.0 Nausea (principal); K59.1 Functional diarrhea
CPT/HCPCS: 82784; 83516; 83630; 83993; 86021; 86671; 87045; 87328; 87329; 87336; 87427; 87493; 87899

== ENCOUNTER → 2017-06-27 | Outpatient (CLI) | payer BC ==
[2017-07-02 06:48] LABS: GAMMA GLUTAMYL TRANSPEPTIDASE 13 U/L (7-33)
[2017-07-02 18:26] LABS: ALK PHOS ISO BONE 50 U/L (0-55)
[2017-07-03 06:31] LABS: ALK PHOS ISO LIVER 118 U/L (0-94)
== END ==
LOC: LAB 13:27
PROVIDERS: ATTEND Internal Medicine Gastroenterology
DX: R74.8 Abnormal levels of other serum enzymes (principal)
CPT/HCPCS: 36415; 82977; 83915; 84080

== ENCOUNTER → 2017-07-15 | Outpatient (CLI) | payer BC ==
[2017-07-15 12:54] LABS: BASOPHILS % (AUTO) 0.8 % (0.2-1.0); EOSINOPHILS # (AUTO) 0.3 x10^3/uL (0.0-0.2); EOSINOPHILS % (AUTO) 7.2 % (0.9-2.9); HEMATOCRIT 44.4 % (36.0-47.0); HEMOGLOBIN 15.2 g/dL (12.0-16.0); LYMPHOCYTES # (AUTO) 1.7 X10^3/uL (1.3-2.9); LYMPHOCYTES % (AUTO) 37.4 % (21.0-51.0); MEAN CORPUSCULAR HEMOGLOBIN 29.8 pg (27.0-34.0); MEAN CORPUSCULAR HGB CONC 34.3 g/dL (33.0-35.0); MEAN PLATELET VOLUME 7.4 fL (7.4-11.0); MONOCYTES # (AUTO) 0.3 x10^3/uL (0.3-0.8); MONOCYTES % (AUTO) 7.3 % (0.0-13.0); NEUTROPHILS # (AUTO) 2.2 x10^3/uL (2.2-4.8); NEUTROPHILS % (AUTO) 47.3 % (42.0-75.0); PLATELET COUNT 295 X10^3/uL (150.0-450.0); RED CELL DISTRIBUTION WIDTH 15.7 % (11.6-16.5); WHITE BLOOD COUNT 4.7 X10^3/uL (3.6-10.0)
[2017-07-15 13:03] LABS: ALANINE AMINOTRANSFERASE 24 Units/L (12-78); ALBUMIN 3.5 g/dL (3.4-5.0); ALKALINE PHOSPHATASE 179 Units/L (46-116); ASPARTATE AMINO TRANSFERASE 21 Units/L (15-37); BLOOD UREA NITROGEN 6 mg/dL (7-18); CARBON DIOXIDE 24.8 mmol/L (21-32); CHLORIDE 102 mmol/L (98-107); CREATININE 0.81 mg/dL (0.55-1.02); SODIUM 137 mmol/L (136-145); TOTAL PROTEIN 7.9 g/dL (6.4-8.2); eGFR BLACK RACES > 60 (>60); eGFR NON BLACK RACES > 60 (>60)
== END ==
LOC: LAB 12:23
PROVIDERS: ATTEND Allergy & Immunology
DX: D84.8 Other specified immunodeficiencies (principal)
CPT/HCPCS: 36415; 80053; 82784; 85025

== ENCOUNTER 2017-08-14 01:54 | Emergency (ER) | payer BC ==
[2017-08-14 02:04] VITALS: BMI 27.9
--- NOTE | 2017-08-14 02:29 | DR.CP ---
HPI - Time Seen Time seen: 02:10 - PCP Primary Care Physician: HAYLEY - HPI Comment HPI Comment: WITH N/V. GETTING WORSE. - Complaint Chief Complaint Doctor Comments: CHEST PAIN TIMES 3 HOURS. Chief Complaint:: CHEST PAIN - Reviewed Nurses Notes Review: Yes - Source History Provided: Patient - Mode of Arrival Mode of Arrival: Ambulatory - Timing Onset of Chief Complaint: 08/14/17 Came on: Suddenly Pain: Present Now - Duration Duration: Constant Duration: Hours - Location Location of Chest Pain: Left, Chest Chest Pain Radiation Location: Left Arm - Context Onset: At rest Cardiac Risk Factors: Smoker, HTN PE Risk Factors: None History of: [place] Prehospital Care: Oxygen - Quality Quality: Heavy, Burning - Severity Severity: Moderate - Modifying Factors Worsens: Nothing Impoves: Nothing - Associated Signs and Symptoms Associated Signs and Symptoms: Shortness of Breath, Nausea/Vomiting PMH - PMH Past Medical History: Yes Past Medical History: Anemia, Asthma, GERD, Hypertension, [place] Past Medical History Comment: COMMON VARIABLE IMMUNINE DEFICIENCY Past Surgical History: Yes Surgical History: Appendectomy Past Surgical History Comment: SINUS SURGERY - Family History History of Family Medical Conditions: Yes Family Medical History: Diabetes Mellitus, Cancer, [place], Heart Failure, Hypertension - Social History Does patient currently use any type of tobacco product: Yes Have you used tobacco products in the last 12 months: Yes Type of Tobacco Use: Cigarettes Alcohol Use: None Do you use any recreational Drugs:: No Lives With: Family Lives Where: Home - infectious screening In the last 2 months have you had wt loss of >10#?: NO Have you had fever, night sweats or hemotysis?: No Have you traveled outside the country in the last 6 months?: No Isolation: Standard ROS - Review of Systems Constitutional: Weakness, Fatigue Eyes: No Symptoms Reported. negative: Eye Pain, Discharge ENTM: negative: Ear Pain, Nose Discharge, Nose Congestion, Throat Pain Respiratoy: Short of Breath. negative: Productive Cough, Wheezing, Hemoptysis Cardiovascular: Chest Pain. negative: Edema Gastrointestinal/Abdominal: Abdominal Pain, Nausea, Vomiting Genitourinary: No Symptoms Reported. negative: Dysuria, Frequency, Hematuria Neurological: Weakness, Dizziness. negative: Headache Musculoskeletal: Muscle Pain Integumentary: No Symptoms Reported Hematologic/Lymphatic: No Symptoms Reported Endocrine: No Symptoms Reported All Other Systems: Reviewed and Negative PE - Vitals Vitals: Temperature 97.9 F Pulse Rate [Right] 74 Pulse Rate 62 Respiratory Rate 16 Blood Pressure [Left Arm] 127/91 Blood Pressure [Right Arm] 116/76 Blood Pressure 138/84 O2 Sat by Pulse Oximetry 98 - General Limitations: No Limitations General Appearance: Alert - Head Head Exam: Normal Inspection - Eyes Eye exam: Normal Appearance - ENT ENT Exam: Normal External Ear Exam - Chest Chest Inspection: Symmetric Chest Wall Rise - Respiratory Respiratory Exam: Normal Lung Sounds Bilat Respiratory Exam: Bilateral Clear to Auscultation - Cardiovascular Cardiovascular Exam: Regular Rate, Normal Rhythm, Normal Heart Sounds Pulse: Normal, Radial, Femoral Edema: Normal - Abdominal Exam Abdominal Exam: Normal Bowel Sounds, Soft. negative: Tenderness - Extremities Extremities Exam: Normal Inspection - Back Back Exam: Normal Inspection - Neurologic Neurological Exam: Alert, Oriented X3, CN II-XII Intact. negative: Motor Sensory Deficit - Psychiatric Psychiatric Exam: Anxious - Skin Skin Exam: Normal Color MDM - Differential Diagnosis Differential Diagnosis: Myocardial Infarction (CHEST PAIN) Course - Treatment Treatment: SEE ORDERS. - Consultation Consultation Comments: PATIENT ACCEPTED FOR TRANSFER BY , [facility]. - Education/Counseling Education/Counseling: Patient, Education Educated On: Treatment, Diagnosis ROR - Labs Reviewed Result Diagrams: 08/14/17 02:45 08/14/17 02:45 Laboratory: WBC 13.8 X10^3/uL (3.6-10.0) H 08/14/17 02:45 RBC 4.68 X10^6/uL (3.5-5.4) 08/14/17 02:45 Hgb 14.1 g/dL (12.0-16.0) 08/14/17 02:45 Hct 41.1 % (36.0-47.0) 08/14/17 02:45 MCV 87.9 fL (80.0-100.0) 08/14/17 02:45 MCH 30.1 pg (27.0-34.0) 08/14/17 02:45 MCHC 34.2 g/dL (33.0-35.0) 08/14/17 02:45 RDW 15.7 % (11.6-16.5) 08/14/17 02:45 Plt Count 328 X10^3/uL (150.0-450.0) 08/14/17 02:45 MPV 7.3 fL (7.4-11.0) L 08/14/17 02:45 Neut % (Auto) 80.1 % (42.0-75.0) H 08/14/17 02:45 Lymph % (Auto) 12.7 % (21.0-51.0) L 08/14/17 02:45 [place] % (Auto) 4.3 % (0.0-13.0) 08/14/17 02:45 Eos % (Auto) 2.0 % (0.9-2.9) 08/14/17 02:45 Baso % (Auto) 0.9 % (0.2-1.0) 08/14/17 02:45 Neut # (Auto) 11.1 x10^3/uL (2.2-4.8) H 08/14/17 02:45 Lymph # (Auto) 1.8 X10^3/uL (1.3-2.9) 08/14/17 02:45 [place] # (Auto) 0.6 x10^3/uL (0.3-0.8) 08/14/17 02:45 Eos # (Auto) 0.3 x10^3/uL (0.0-0.2) H 08/14/17 02:45 Baso # (Auto) 0.1 X10^3/uL (0.0-0.1) 08/14/17 02:45 Absolute Nucleated RBC 0.0 /100WBC 08/14/17 02:45 INR Target Range - 08/14/17 02:45 INR 0.98 (0.8-1.3) 08/14/17 02:45 APTT 23.8 SECONDS (22.9-36.5) 08/14/17 02:45 PTT Comment - 08/14/17 02:45 Sodium 142 mmol/L (136-145) 08/14/17 02:45 Corrected Sodium 143 mmol/L (136-145) 08/14/17 02:45 Potassium 3.5 mmol/L (3.5-5.1) 08/14/17 02:45 Chloride 107 mmol/L (98-107) 08/14/17 02:45 Carbon Dioxide 20.5 mmol/L (21-32) L 08/14/17 02:45 BUN 6 mg/dL (7-18) L 08/14/17 02:45 Creatinine 0.67 mg/dL (0.55-1.02) 08/14/17 02:45 Est GFR (MDRD) Af Amer > 60 (>60) 08/14/17 02:45 Est GFR (MDRD) Non-Af > 60 (>60) 08/14/17 02:45 Glucose 138 mg/dL (65-99) H 08/14/17 02:45 Calcium 8.6 mg/dL (8.5-10.1) 08/14/17 02:45 Corrected Calcium TNP 08/14/17 02:45 Total Bilirubin 0.20 mg/dL (0.2-1.0) 08/14/17 02:45 AST 17 Units/L (15-37) 08/14/17 02:45 ALT 19 Units/L (12-78) 08/14/17 02:45 Alkaline Phosphatase 126 Units/L (46-116) H 08/14/17 02:45 Creatine Kinase 51 Units/L (26-192) 08/14/17 02:45 CK-MB (CK-2) 2.5 ng/mL (0-4.0) 08/14/17 02:45 CK/CKMB % Calc 4.9 % (<4) 08/14/17 02:45 Troponin I 0.22 ng/mL (0-1.5) 08/14/17 02:45 Total Protein 7.7 g/dL (6.4-8.2) 08/14/17 02:45 Albumin 3.6 g/dL (3.4-5.0) 08/14/17 02:45 Globulin 4.1 g/dL (2.5-4.5) 08/14/17 02:45 Albumin/Globulin Ratio 0.9 Ratio (1.1-2.1) L 08/14/17 02:45 - XRAY XRAY Findings: REPORT DISCUSS WITH PATIENT. - EKG Rhythm: NSR ST: Ant, Infarct - Diagnosis Discharge Problem: Acute ST-elevation myocardial infarction - Discharge Plan Disposition: XFER SHT-TRM HOSP Condition: Stable - Follow ups/Referrals Follow ups/Referrals: Enio Shipley [Primary Care Provider] - 3 days - Instructions
[2017-08-14] MEDS ORDERED: NS 1000 ML 1,000 ML IV ONE (02:32)
[2017-08-14] MEDS ORDERED: ZOFRAN INJ 4 MG VIAL IVP ONE (02:32)
[2017-08-14] MEDS ORDERED: PEPCID 20 MG IV PREMIX* 20 MG/50 ML BAG IV ONE ×2 (02:33→02:50)
[2017-08-14] MEDS ORDERED: NS 1000 ML 1,000 ML ONE (02:50)
[2017-08-14] MEDS ORDERED: ZOFRAN INJ 4 MG VIAL ONE (02:52)
[2017-08-14 02:59] LABS: BASOPHILS # (AUTO) 0.1 X10^3/uL (0.0-0.1); BASOPHILS % (AUTO) 0.9 % (0.2-1.0); EOSINOPHILS # (AUTO) 0.3 x10^3/uL (0.0-0.2); HEMATOCRIT 41.1 % (36.0-47.0); HEMOGLOBIN 14.1 g/dL (12.0-16.0); LYMPHOCYTES # (AUTO) 1.8 X10^3/uL (1.3-2.9); LYMPHOCYTES % (AUTO) 12.7 % (21.0-51.0); MEAN CORPUSCULAR HEMOGLOBIN 30.1 pg (27.0-34.0); MEAN CORPUSCULAR HGB CONC 34.2 g/dL (33.0-35.0); MEAN CORPUSCULAR VOLUME 87.9 fL (80.0-100.0); MEAN PLATELET VOLUME 7.3 fL (7.4-11.0); MONOCYTES # (AUTO) 0.6 x10^3/uL (0.3-0.8); MONOCYTES % (AUTO) 4.3 % (0.0-13.0); NEUTROPHILS # (AUTO) 11.1 x10^3/uL (2.2-4.8); NEUTROPHILS % (AUTO) 80.1 % (42.0-75.0); PLATELET COUNT 328 X10^3/uL (150.0-450.0); RED BLOOD COUNT 4.68 X10^6/uL (3.5-5.4); RED CELL DISTRIBUTION WIDTH 15.7 % (11.6-16.5); WHITE BLOOD COUNT 13.8 X10^3/uL (3.6-10.0)
--- NOTE | 2017-08-14 03:04 | RAD ---
AP Chest Indication: Chest pain Comparison: 08/28/ Findings: The trachea is midline. The cardiac silhouette is unremarkable. Persistent scarring/subsegmental li sthesis within the lung bases. The lungs are clear without focal infiltrate or effusion. The bony th orax is unremarkable. IMPRESSION: 1. No acute cardiopulmonary abnormality or change from prior exam. Reported By:
[2017-08-14 03:10] LABS: BLOOD UREA NITROGEN 6 mg/dL (7-18); CALCIUM 8.6 mg/dL (8.5-10.1); CARBON DIOXIDE 20.5 mmol/L (21-32); CHLORIDE 107 mmol/L (98-107); COR NA(FOR HYPERGLY) 143 mmol/L (136-145); CREATININE 0.67 mg/dL (0.55-1.02); SODIUM 142 mmol/L (136-145); TROPONIN I 0.22 ng/mL (0-1.5); eGFR BLACK RACES > 60 (>60); eGFR NON BLACK RACES > 60 (>60)
[2017-08-14] MEDS ORDERED: HEPARIN SODIUM INJ 5000 UNITS ONE (03:13)
[2017-08-14] MEDS ORDERED: HEPARIN SODIUM IN D5W 25,000 UNITS/500 ML BAG IV ONE (03:14)
[2017-08-14 03:15] LABS: ALANINE AMINOTRANSFERASE 19 Units/L (12-78); ALBUMIN 3.6 g/dL (3.4-5.0); ALKALINE PHOSPHATASE 126 Units/L (46-116); ASPARTATE AMINO TRANSFERASE 17 Units/L (15-37); CKMB % 4.9 % (<4); CREATINE KINASE 51 Units/L (26-192); CREATINE KINASE MB 2.5 ng/mL (0-4.0); TOTAL PROTEIN 7.7 g/dL (6.4-8.2)
[2017-08-14] MEDS ORDERED: HEPARIN SODIUM IN D5W 25,000 UNITS/500 ML BAG IV PRN (03:20)
[2017-08-14] MEDS ORDERED: HEPARIN SODIUM INJ 5000 UNITS IVP STA (03:22)
[2017-08-14 03:40] VITALS: BP 127/91
== END 2017-08-14 03:25 | disposition short-term general hospital (02) ==
LOC: ER 01:54
DX: I21.3 ST elevation (STEMI) myocardial infarction of unspecified site (principal); R94.31 Abnormal electrocardiogram [ECG] [EKG]
CPT/HCPCS: 36415; 71045; 80053; 82550; 82553; 84484; 85025; 85610; 85730; 93005; 96365; 96374; 96375; 99285; A4222; S0028; J1644; J2405

== ENCOUNTER 2017-09-25 17:04 | Emergency (ER) | payer BC ==
[2017-09-25 17:15] VITALS: BMI 25.3
--- NOTE | 2017-09-25 17:42 | DR.HTN ---
HPI - Time Seen Time seen: 18:40 - Primary Care Physician Primary Care Physician: CHANO - HPI Comment HPI Comment: PATIENT HAVE CHEST PRESSURE ON AND OFF TODAY. ALLEGIC TO ASPIRIN. ON PLATELET MEDS. IN ED, BP NOT ELEVATED. - Complaints Chief Complaint Doctors Comments: DIZZINESS, S/P CT WITH STENT 4 WEEKS AGO. BP ELEVATED ALSO. Chief Complaint:: PT C/O FEELING DIZZY AND STATES HER BLOOD PRESSURE HAS BEEN HIGH. PT STATES SHE IS S/P HEART ATTACK 4 WEEKS AND SHE HAD X3 STENTS AND WAS PLACED IN A COMA PT DENIES ANY PAIN. - Reviewed Nurses Notes Reviewed: Yes - Source History Provided: Patient - Mode of Arrival Mode of Arrival: Ambulatory - Timing Onset of Chief Complaint: 09/25/17 - Severity Severity: Moderate - Context Circumstances: Spontaneous Onset Treatment of HTN Prior to Arrival: Taking meds as prescribed - Associated Signs and Symptoms HTN Associated Signs and Symptoms: Dizziness PMH - PMH Past Medical History: Yes Past Medical History: Anemia, Asthma, GERD, Hypertension, CT Past Surgical History: Yes Surgical History: Angioplasty/Stents, Appendectomy - Family History History of Family Medical Conditions: Yes Family Medical History: Diabetes Mellitus, Cancer, [place], Heart Failure, Hypertension - Social History Does any household member use tobacco: No Alcohol Use: None Do you use any recreational Drugs:: No Lives With: Family Lives Where: Home - infectious screening In the last 2 months have you had wt loss of >10#?: NO Have you had fever, night sweats or hemotysis?: No Have you traveled outside the country in the last 6 months?: No Isolation: Standard ROS - Review of Systems Constitutional: No Symptoms Reported Eyes: No Symptoms Reported ENTM: No Symptoms Reported Respiratoy: No Symptoms Reported Cardiovascular: No Symptoms Reported, Chest Pain Gastrointestinal/Abdominal: No Symptoms Reported Genitourinary: No Symptoms Reported Neurological: No Symptoms Reported, Headache, Weakness, Dizziness Musculoskeletal: No Symptoms Reported Integumentary: No Symptoms Reported Hematologic/Lymphatic: No Symptoms Reported Endocrine: No Symptoms Reported All Other Systems: Reviewed and Negative PE - Vital Signs Vitals: Temperature 98.4 F Pulse Rate [Apical] 79 Pulse Rate 20 Respiratory Rate 20 Blood Pressure [Left Arm] 127/91 Blood Pressure [Right Arm] 101/68 Blood Pressure 156/108 O2 Sat by Pulse Oximetry 97 - General Limitations: No Limitations General Appearance: Alert - Head Head Exam: Normal Inspection - Eyes Eye exam: Normal Appearance Pupils: Regular, Round: Bilateral Sclera/Conjunctival: Normal Inspection: Bilateral - ENT ENT Exam: Normal Exam - Neck Neck Exam: Normal Inspection - Chest Chest Inspection: Symmetric Chest Wall Rise - Respiratory Respiratory Exam: Normal Lung Sounds Bilat Respiratory Exam: Bilateral Clear to Auscultation - Cardiovascular Cardiovascular Exam: Regular Rate, Normal Rhythm, Normal Heart Sounds - Abdominal Exam Abdominal Exam: Normal Bowel Sounds, Soft. negative: Tenderness - Extremities Extremities Exam: Normal Inspection - Back Back Exam: Normal Inspection - Neurologic Neurological Exam: Alert, Oriented X3 Speech: Fluid Speech Cranial Nerve Exam: EOM Function (II, III, IV, ): Normal, Facial Sensation (V) : Normal, Facial Palsy (VII): Normal, Gag reflex (XI): Normal, Spinal Accessory Function (XI): Normal, Tongue Deviation: Normal Motor Strength - LUE: 5/5 Motor Strength - RUE: 5/5 Motor Strength - LLE: 5/5 Motor Strength - RLE: 5/5 Upper Motor Neuron Exam: Babinski Sign: Normal - Psychiatric Psychiatric Exam: Anxious - Skin Skin Exam: Normal Color MDM - Additional Information Obtained Additional Information Obtained From: Family - Differential Diagnosis Differential Diagnosis: CHF, Hyertension, essential Differential Diagnosis Comment: CT, CAD, PE, UTI Course - Treatment Treatment: SEE ORDERS. BP DECREASE IN ED BEFORE TRANSFER. 300CC NS GIVEN. BP IMPROVE. - Consultation Consultation Comments: PATIENT DISCUSS WITH CAROLA ALLAN, DR. HUANG ACCEPTED PT TO [facility] TRANSFER CENTER LINE. - Education/Counseling Education/Counseling: Patient, Family, Education Educated On: Diagnosis, Needs for Follow Up ROR - Labs Reviewed Laboratory Results Reviewed?: Yes Result Diagrams: 09/25/17 18:48 09/25/17 18:53 Laboratory: WBC 7.5 X10^3/uL (3.6-10.0) 09/25/17 18:48 RBC 4.00 X10^6/uL (3.5-5.4) 09/25/17 18:48 Hgb 12.4 g/dL (12.0-16.0) 09/25/17 18:48 Hct 37.0 % (36.0-47.0) 09/25/17 18:48 MCV 92.6 fL (80.0-100.0) 09/25/17 18:48 MCH 31.0 pg (27.0-34.0) 09/25/17 18:48 MCHC 33.5 g/dL (33.0-35.0) 09/25/17 18:48 RDW 17.2 % (11.6-16.5) H 09/25/17 18:48 Plt Count 307 X10^3/uL (150.0-450.0) 09/25/17 18:48 MPV 9.2 fL (7.4-11.0) 09/25/17 18:48 Neut % (Auto) 47.6 % (42.0-75.0) 09/25/17 18:48 Lymph % (Auto) 39.8 % (21.0-51.0) 09/25/17 18:48 [place] % (Auto) 9.5 % (0.0-13.0) 09/25/17 18:48 Eos % (Auto) 1.7 % (0.9-2.9) 09/25/17 18:48 Baso % (Auto) 1.4 % (0.2-1.0) H 09/25/17 18:48 Neut # (Auto) 3.6 x10^3/uL (2.2-4.8) 09/25/17 18:48 Lymph # (Auto) 3.0 X10^3/uL (1.3-2.9) H 09/25/17 18:48 [place] # (Auto) 0.7 x10^3/uL (0.3-0.8) 09/25/17 18:48 Eos # (Auto) 0.1 x10^3/uL (0.0-0.2) 09/25/17 18:48 Baso # (Auto) 0.1 X10^3/uL (0.0-0.1) 09/25/17 18:48 Absolute Nucleated RBC 0.2 /100WBC 09/25/17 18:48 Sodium 137 mmol/L (136-145) 09/25/17 18:53 Corrected Sodium TNP 09/25/17 18:53 Potassium 2.7 mmol/L (3.5-5.1) L* 09/25/17 18:53 Chloride 102 mmol/L (98-107) 09/25/17 18:53 Carbon Dioxide 25.9 mmol/L (21-32) 09/25/17 18:53 BUN 9 mg/dL (7-18) 09/25/17 18:53 Creatinine 0.80 mg/dL (0.55-1.02) 09/25/17 18:53 Est GFR (MDRD) Af Amer > 60 (>60) 09/25/17 18:53 Est GFR (MDRD) Non-Af > 60 (>60) 09/25/17 18:53 Glucose 95 mg/dL (65-99) 09/25/17 18:53 Calcium 9.0 mg/dL (8.5-10.1) 09/25/17 18:53 Corrected Calcium TNP 09/25/17 18:53 Total Bilirubin 0.50 mg/dL (0.2-1.0) 09/25/17 18:53 AST 29 Units/L (15-37) 09/25/17 18:53 ALT 32 Units/L (12-78) 09/25/17 18:53 Alkaline Phosphatase 179 Units/L (46-116) H 09/25/17 18:53 Creatine Kinase 36 Units/L (26-192) 09/25/17 21:13 CK-MB (CK-2) < 1.0 ng/mL (0-4.0) 09/25/17 21:13 CK/CKMB % Calc 2.8 % (<4) 09/25/17 21:13 Troponin I 0.04 ng/mL (0-1.5) 09/25/17 21:13 B-Natriuretic Peptide 353 pg/mL (0-79) H 09/25/17 18:53 Total Protein 7.3 g/dL (6.4-8.2) 09/25/17 18:53 Albumin 3.4 g/dL (3.4-5.0) 09/25/17 18:53 Globulin 3.9 g/dL (2.5-4.5) 09/25/17 18:53 Albumin/Globulin Ratio 0.9 Ratio (1.1-2.1) L 09/25/17 18:53 - XRAY XRAY Findings: REPORT DISCUSS WITH PATIENT AND FAMILY - EKG Rhythm: NSR ST: Ischemia (EKG NOTED.) - Diagnosis Discharge Problem: Chest pain, CAD (coronary artery disease), Abnormal cardiac enzyme level, Hypokalemia - Discharge Plan Disposition: 05 XFER OTHER Condition: Stable - Follow ups/Referrals Follow ups/Referrals: Enio Shipley [Primary Care Provider] - 3 days - Instructions
[2017-09-25 19:10] LABS: BASOPHILS # (AUTO) 0.1 X10^3/uL (0.0-0.1); BASOPHILS % (AUTO) 1.4 % (0.2-1.0); EOSINOPHILS # (AUTO) 0.1 x10^3/uL (0.0-0.2); EOSINOPHILS % (AUTO) 1.7 % (0.9-2.9); HEMOGLOBIN 12.4 g/dL (12.0-16.0); LYMPHOCYTES % (AUTO) 39.8 % (21.0-51.0); MEAN CORPUSCULAR HGB CONC 33.5 g/dL (33.0-35.0); MEAN CORPUSCULAR VOLUME 92.6 fL (80.0-100.0); MEAN PLATELET VOLUME 9.2 fL (7.4-11.0); MONOCYTES # (AUTO) 0.7 x10^3/uL (0.3-0.8); MONOCYTES % (AUTO) 9.5 % (0.0-13.0); NEUTROPHILS # (AUTO) 3.6 x10^3/uL (2.2-4.8); NEUTROPHILS % (AUTO) 47.6 % (42.0-75.0); PLATELET COUNT 307 X10^3/uL (150.0-450.0); RED CELL DISTRIBUTION WIDTH 17.2 % (11.6-16.5); WHITE BLOOD COUNT 7.5 X10^3/uL (3.6-10.0)
[2017-09-25 19:23] LABS: B-TYPE NATRIURETIC PEPTIDE 353 pg/mL (0-79)
[2017-09-25 19:27] LABS: ALANINE AMINOTRANSFERASE 32 Units/L (12-78); ALBUMIN 3.4 g/dL (3.4-5.0); ALKALINE PHOSPHATASE 179 Units/L (46-116); ASPARTATE AMINO TRANSFERASE 29 Units/L (15-37); BLOOD UREA NITROGEN 9 mg/dL (7-18); CARBON DIOXIDE 25.9 mmol/L (21-32); CHLORIDE 102 mmol/L (98-107); CKMB % 2.6 % (<4); CREATINE KINASE 39 Units/L (26-192); CREATINE KINASE MB < 1.0 ng/mL (0-4.0); SODIUM 137 mmol/L (136-145); TOTAL PROTEIN 7.3 g/dL (6.4-8.2); TROPONIN I 0.03 ng/mL (0-1.5); eGFR BLACK RACES > 60 (>60); eGFR NON BLACK RACES > 60 (>60)
[2017-09-25] MEDS ORDERED: K-LYTE EFFERVESCENT PO ONE (19:36)
[2017-09-25] MEDS ORDERED: K-LYTE EFFERVESCENT ONE (19:38)
--- NOTE | 2017-09-25 19:49 | RAD ---
HISTORY: Shortness of breath Study: Single view of the chest. Comparison: 08/14/2017 Findings: Heart appears enlarged. No focal consolidations, pleural effusions or pneumothorax. Osseous structure s demonstrate no acute abnormality. Bilateral hyper expansion and coarsening of interstitial markings . IMPRESSION: 1. No acute cardiopulmonary process. 2. Cardiomegaly. 3. Findings of COPD. Reported By:
[2017-09-25] MEDS ORDERED: K-LYTE EFFERVESCENT PO SCH (20:00)
[2017-09-25 21:40] LABS: CKMB % 2.8 % (<4); CREATINE KINASE 36 Units/L (26-192); CREATINE KINASE MB < 1.0 ng/mL (0-4.0); TROPONIN I 0.04 ng/mL (0-1.5)
[2017-09-25 23:26] VITALS: BP 101/68
[2017-09-25] MEDS ORDERED: NS 500 ML IV 500 ML IV ONE (23:44)
[2017-09-25] MEDS ORDERED: NS 1000 ML 1,000 ML IV ONE (23:45)
== END 2017-09-26 00:09 | disposition short-term general hospital (02) ==
LOC: ER 17:26
DX: I25.10 Atherosclerotic heart disease of native coronary artery without angina pectoris (principal); R07.89 Other chest pain; R74.8 Abnormal levels of other serum enzymes; E87.6 Hypokalemia; R94.31 Abnormal electrocardiogram [ECG] [EKG]; I51.7 Cardiomegaly; J44.9 Chronic obstructive pulmonary disease, unspecified
CPT/HCPCS: 36415; 71045; 80053; 82550; 82553; 83880; 84484; 85025; 93005; 96365; 96367; 99285; A4222

== ENCOUNTER → 2017-10-08 | Outpatient (CLI) | payer BC ==
[2017-09-25 23:26] VITALS: BP 101/68
[2017-10-08 10:54] LABS: BASOPHILS # (AUTO) 0.1 X10^3/uL (0.0-0.1); BASOPHILS % (AUTO) 0.9 % (0.2-1.0); EOSINOPHILS # (AUTO) 0.2 x10^3/uL (0.0-0.2); EOSINOPHILS % (AUTO) 1.8 % (0.9-2.9); HEMATOCRIT 32.6 % (36.0-47.0); HEMOGLOBIN 11.1 g/dL (12.0-16.0); LYMPHOCYTES # (AUTO) 1.4 X10^3/uL (1.3-2.9); MEAN CORPUSCULAR HGB CONC 34.1 g/dL (33.0-35.0); MEAN CORPUSCULAR VOLUME 90.9 fL (80.0-100.0); MEAN PLATELET VOLUME 8.8 fL (7.4-11.0); MONOCYTES # (AUTO) 0.6 x10^3/uL (0.3-0.8); NEUTROPHILS # (AUTO) 6.1 x10^3/uL (2.2-4.8); NEUTROPHILS % (AUTO) 73.3 % (42.0-75.0); PLATELET COUNT 268 X10^3/uL (150.0-450.0); RED BLOOD COUNT 3.59 X10^6/uL (3.5-5.4); RED CELL DISTRIBUTION WIDTH 15.9 % (11.6-16.5); WHITE BLOOD COUNT 8.3 X10^3/uL (3.6-10.0)
[2017-10-08 11:08] LABS: ALANINE AMINOTRANSFERASE 26 Units/L (12-78); ALBUMIN 3.2 g/dL (3.4-5.0); ALKALINE PHOSPHATASE 179 Units/L (46-116); ASPARTATE AMINO TRANSFERASE 19 Units/L (15-37); BLOOD UREA NITROGEN 6 mg/dL (7-18); CALCIUM 8.3 mg/dL (8.5-10.1); CARBON DIOXIDE 23.7 mmol/L (21-32); CHLORIDE 101 mmol/L (98-107); COR CA(FOR HYPOALB) 8.9 mg/dL (8.5-10.1); CREATININE 0.77 mg/dL (0.55-1.02); SODIUM 136 mmol/L (136-145); TOTAL PROTEIN 6.8 g/dL (6.4-8.2); eGFR BLACK RACES > 60 (>60); eGFR NON BLACK RACES > 60 (>60)
== END ==
LOC: LAB 10:18
PROVIDERS: ATTEND Allergy & Immunology
DX: D84.8 Other specified immunodeficiencies (principal)
CPT/HCPCS: 36415; 80053; 82784; 85025